=== PATIENT | female | born 1995 | race Caucasian/White ===

== ENCOUNTER 2019-12-18 08:58 | Day surgery (SDC) | payer OTHER ==
[2019-12-17 11:58] VITALS: BMI 43.9
--- NOTE | 2019-12-18 08:10 | HP ---
History & Physical Update - History History: No Change - Physical Physical: No Change - Assessment Assessment: No Change - Plan Plan: No Change
--- NOTE | 2019-12-18 08:12 | OP ---
Operative Note - Note: Operative Date: 12/18/19 Pre-Operative Diagnosis: L ureteral calculus Operation: L ureteroscopy and JJ stent change Findings: L ureteral calculus Post-Operative Diagnosis: Same as Pre-op (passed) Surgeon: Kalyan Seals Anesthesiologist/BOILERMAKER HELPER: Cody Olivo Anesthesia: General Specimens Removed: L JJ stent Estimated Blood Loss (mls): 0 Drains & Tubes with Location: 6 fr 26 cm L JJ stent Operative Report Dictated: Yes
[2019-12-18 09:59] LABS: EPI CELLS 18 /uL (0-25.1); HCG,QUALITATIVE URINE Negative; HYALINE CASTS 5 /uL (0-3.1); PH,URINE 6.5 (5.0-8.0); URINE APPEARANCE TURBID; URINE BACTERIA 1574 /uL (0-1359); URINE BILIRUBIN NEGATIVE (NEGATIVE); URINE COLOR YELLOW; URINE GLUCOSE (UA) NEGATIVE (NEGATIVE); URINE KETONE NEGATIVE (NEGATIVE); URINE LEUK ESTERASE 3+ (NEGATIVE); URINE NITRITE NEGATIVE (NEGATIVE); URINE PROTEIN 3+ (NEGATIVE); URINE RBC 1026 /uL (0-23.9); URINE WBC 5500 /uL (0-25.8)
[2019-12-18] MEDS ORDERED: ONDANSETRON 4 MG/2 ML VIAL IVPUSH PRN (10:41)
[2019-12-18] MEDS ORDERED: LACTATED RINGERS SOLUTION 1,000 ML IV SCH (10:45)
[2019-12-18] MEDS ORDERED: PROPOFOL 20 ML ONE (10:47)
[2019-12-18] MEDS ORDERED: MIDAZOLAM HCL 2 MG/2 ML SINGLE DOSE VIAL ONE (10:47)
[2019-12-18] MEDS ORDERED: DESFLURANE GAS 240 ML BOTTLE IH ONE (10:54)
[2019-12-18] MEDS ORDERED: KETOROLAC TROMETHAMINE 30 MG/1 ML VIAL ONE (11:17)
[2019-12-18] MEDS ORDERED: ceFAZolin SODIUM 1 GM VIAL ONE (11:17)
[2019-12-18] MEDS ORDERED: DEXAMETHASONE SOD PHOSPHATE 4 MG/1 ML VIAL ONE (11:17)
[2019-12-18] MEDS ORDERED: ceFAZolin SODIUM 1 GM VIAL IVPB ONE (11:20)
[2019-12-18] MEDS ORDERED: IOHEXOL 300 MG/ML INFUS..BTL IV ONE (11:41)
[2019-12-18] MEDS ORDERED: ONDANSETRON 4 MG/2 ML VIAL ONE (13:03)
[2019-12-18] MEDS ORDERED: ACETAMINOPHEN INJECTION 100 ML IVPB ONE (13:35)
[2019-12-18] MEDS ORDERED: ACETAMINOPHEN 1000 MG/100 ML VIAL (NON FORMULARY) IVPB ONE (13:37)
[2019-12-18 15:18] VITALS: BP 121/73; PULSE 89; TEMP 98.6
--- NOTE | 2019-12-19 10:45 | OP ---
DATE OF OPERATION: 12/18/2019 PREOPERATIVE DIAGNOSIS: Left ureteral calculus (passed). POSTOPERATIVE DIAGNOSIS: Left ureteral calculus (passed). PROCEDURE: Cystoscopy, left ureteroscopy, left double-J stent change. SURGEON: Kalyan Seals MD TRANSFER STATION ATTENDANT: None. ANESTHESIA: General via laryngeal mask. ANESTHESIOLOGIST: Cody Olivo MD SPECIMENS: Left double-J stent. CULTURES: None. DRAINS: A 6-Tristanian 26-cm left double-J stent. ESTIMATED BLOOD LOSS: None. COMPLICATIONS: None. PROCEDURE IN DETAIL: Patient was brought in the operating room, placed on the operating table in supine position. After administration of general anesthesia via laryngeal mask, intravenous antibiotics were administered. Sequential compression devices were placed. A 22-Tristanian cystoscope was inserted into the bladder under direct vision. Cystoscopy was performed. This demonstrated no tumors or stones. There was some inflammation related to the left double-J stent. The left double-J stent was grasped at its tip, brought to the urethral meatus. Attempts at cannulation were unsuccessful due to encrustation. Cystoscope was reinserted, and a guidewire was advanced alongside the stent to the level of the left renal pelvis under fluoroscopic and direct visual guidance. The left double-J stent was then removed, sent to Pathology as specimen. Now, a dual-lumen catheter was inserted. Retrograde pyelogram was done, demonstrated mild left hydronephrosis, questionable filling defect in the left lower pole of the kidney. A Super Stiff guidewire was inserted through the dual-lumen catheter. Then, dual-lumen catheter was removed, and a ureteral access sheath was inserted over the Super Stiff guidewire, which was then removed. Now, the flexible ureteroscope was inserted through the ureteral access sheath to the level of the left renal pelvis under direct visual and fluoroscopic guidance. The left renal collecting system in its entirety was inspected, and no stone was seen. Now, the ureteroscope was withdrawn along the entire course of the ureter, and again, no stone was seen. The bladder was thoroughly inspected. No stone was in the bladder as well. Ureteroscope was removed, and a 6-Tristanian 26-cm left double-J stent was inserted over the guidewire under fluoroscopic guidance, leaving 1 coil in the renal pelvis and 1 coil in the bladder. Bladder was emptied. Cystoscope removed. She tolerated the procedure well, transferred to the recovery room in stable condition. Jonelle [id number]
--- NOTE | 2019-12-22 16:56 | PATH ---
Surgical Pathology Report Patient Name: TIFFANIE ROE Med. Rec. #: [id number] /Age/Gender: 1995 (Age: 24) / F Account: [id number] Location: [facility] SUR[facility] Taken: 12/18/2019 Received: 12/18/2019 Reported: 12/22/2019 Physicians: Kalyan Seals M.D. Specimen(s) Received FOREIGN BODY Clinical History Calculus of ureter Final Diagnosis LEFT URETERAL STENT, REMOVAL: CONSISTENT WITH SEGMENT OF STENT. GROSS EXAMINATION ONLY. Electronically Signed Suze Harman M.D. Gross Description Received fresh labeled "left ureteral stent removed," is a 38 cm in length blue, coiled portion of tubing, consistent with a ureteral stent. No soft tissue is present. No sections are submitted, gross only. /12/18/2019 saudi/12/18/2019
== END 2019-12-18 15:15 | disposition home or self-care (01) ==
LOC: JASU-SURG 08:58
PROVIDERS: ATTEND Urology
PROC: 0T778DZ Dilation of Left Ureter with Intraluminal Device, Via Natural or Artificial Opening Endoscopic (ICD-10-PCS; principal; 2019-12-18 11:00)
DX: N20.1 Calculus of ureter (principal)
CPT/HCPCS: 76000-TC-FY; 81003; 84703; 88300-TC; 94760; J0131

== ENCOUNTER 2020-07-15 04:53 | Day surgery (SDC) | payer OTHER ==
[2020-07-12 13:10] VITALS: BMI 45.3
[2020-07-15] MEDS ORDERED: PROPOFOL 20 ML ONE (09:31)
[2020-07-15] MEDS ORDERED: EPHEDRINE SULFATE/0.9% NACL/PF 50 MG/10 ML SYRINGE NR ONE (09:31)
[2020-07-15] MEDS ORDERED: MIDAZOLAM HCL 2 MG/2 ML SINGLE DOSE VIAL ONE (09:32)
[2020-07-15] MEDS ORDERED: SUCCINYLCHOLINE CHLORIDE 200 MG/10 ML SYRINGE ONE (09:32)
[2020-07-15] MEDS ORDERED: ceFAZolin SODIUM 1 GM VIAL IVPB ONE (10:06)
[2020-07-15] MEDS ORDERED: IOHEXOL 180 MG/1 ML ML IJ ONE (10:10)
[2020-07-15] MEDS ORDERED: oxyCODONE HCL 5 MG TABLET PO PRN (10:39)
[2020-07-15] MEDS ORDERED: PROMETHAZINE HCL 25 MG/1 ML VIAL IVPB PRN (10:39)
[2020-07-15] MEDS ORDERED: ONDANSETRON 4 MG/2 ML VIAL IVPUSH PRN (10:39)
[2020-07-15] MEDS ORDERED: LACTATED RINGERS SOLUTION 1,000 ML IV SCH (10:45)
[2020-07-15 11:34] VITALS: TEMP 97.5
[2020-07-15 13:14] VITALS: BP 125/62; PULSE 85
[2020-07-24 14:58] LABS: SIZE 1 x 2
[2020-07-24 14:59] LABS: CA OXALATE MONOHYDR. 10%; WEIGHT 5
[2020-07-24 15:00] LABS: CA HYDROGEN PHOS. 80
== END 2020-07-15 13:45 | disposition home or self-care (01) ==
LOC: JASU-SURG 04:53
PROVIDERS: ATTEND Urology
PROC: 0TC78ZZ Extirpation of Matter from Left Ureter, Via Natural or Artificial Opening Endoscopic (ICD-10-PCS; principal; 2020-07-15 09:00)
PROC: 0T778DZ Dilation of Left Ureter with Intraluminal Device, Via Natural or Artificial Opening Endoscopic (ICD-10-PCS; 2020-07-15 09:00)
DX: N20.1 Calculus of ureter (principal)
CPT/HCPCS: 36415; 76000-TC-FY; 82360; 84703; 88300-TC; 94760

== ENCOUNTER 2020-07-17 14:11 | Inpatient (IN) | payer OTHER ==
[2020-07-17] MEDS ORDERED: SODIUM CHLORIDE 1,000 ML IV STA (14:53)
[2020-07-17] MEDS ORDERED: ONDANSETRON 4 MG/2 ML VIAL IVPUSH ONE (14:54)
[2020-07-17] MEDS ORDERED: ONDANSETRON 4 MG/2 ML VIAL ONE (15:02)
[2020-07-17 16:03] LABS: BASO % 0.4 % (0-2.0); HEMATOCRIT 36.4 % (32.4-45.2); HEMOGLOBIN 11.9 GM/dL (10.7-15.3); LYMPH % 13.4 % (8-40); MCH 26.1 pg (25.7-33.7); MCHC 32.8 g/dl (32.0-36.0); MEAN CELL VOLUME 79.8 fl (80-96); MEAN PLT VOLUME 8.9 fl (7.5-11.1); NEUT % 74.2 % (42.8-82.8); PLATELET COUNT 267 K/MM3 (134-434); RBC 4.57 M/mm3 (3.60-5.2); RDW 14.8 % (11.6-15.6); WHITE BLOOD COUNT 13.6 K/mm3 (4.0-10.0)
[2020-07-17 16:14] LABS: POTASSIUM 3.6 mmol/L (3.5-5.1)
[2020-07-17 16:15] LABS: CALCIUM 8.6 mg/dL (8.5-10.1)
[2020-07-17 16:16] LABS: ALBUMIN 3.2 g/dl (3.4-5.0); BLOOD UREA NITROGEN 10.3 mg/dL (7-18)
[2020-07-17 16:19] LABS: CREATININE 0.6 mg/dL (0.55-1.3)
[2020-07-17 16:21] LABS: BILIRUBIN,TOTAL 1.2 mg/dL (0.2-1); TOT PROT 7.1 g/dl (6.4-8.2)
[2020-07-17 16:58] LABS: EPI CELLS >36 /uL (0-25.1); HCG,QUALITATIVE URINE Negative; HYALINE CASTS 0 /uL (0-3.1); URINE APPEARANCE CLEAR; URINE BACTERIA 282 /uL (0-1359); URINE BILIRUBIN NEGATIVE (NEGATIVE); URINE COLOR YELLOW; URINE GLUCOSE (UA) NEGATIVE (NEGATIVE); URINE KETONE NEGATIVE (NEGATIVE); URINE LEUK ESTERASE 2+ (NEGATIVE); URINE NITRITE NEGATIVE (NEGATIVE); URINE PROTEIN NEGATIVE (NEGATIVE); URINE RBC 16 /uL (0-23.9); URINE UROBILINOGEN 0.2 mg/dL (0.2-1.0); URINE WBC 38 /uL (0-25.8)
[2020-07-17] MEDS ORDERED: CEFTRIAXONE 1 GM in DEXTROSE 5%-WATER - 50 ML IVPB ONE (19:21)
[2020-07-17] MEDS ORDERED: CEFTRIAXONE 1 GM/50 ML BAG ONE (19:37)
[2020-07-17] MEDS ORDERED: SODIUM CHLORIDE 1,000 ML IV SCH (21:00)
[2020-07-18] MEDS ORDERED: ACETAMINOPHEN 325 MG TABLET (FP) ONE (00:48)
[2020-07-18] MEDS: ACETAMINOPHEN 325 MG TABLET (FP) PO PRN ×4 (01:00→20:31)
[2020-07-18 04:50] LABS: EPI CELLS 22 /uL (0-25.1); HYALINE CASTS 4 /uL (0-3.1); URINE APPEARANCE TURBID; URINE BACTERIA 900 /uL (0-1359); URINE BILIRUBIN NEGATIVE (NEGATIVE); URINE COLOR YELLOW; URINE GLUCOSE (UA) NEGATIVE (NEGATIVE); URINE KETONE 3+ (NEGATIVE); URINE LEUK ESTERASE 3+ (NEGATIVE); URINE NITRITE NEGATIVE (NEGATIVE); URINE PROTEIN 2+ (NEGATIVE); URINE RBC 579 /uL (0-23.9); URINE WBC 6137 /uL (0-25.8)
[2020-07-18 08:36] LABS: BASO % 0.2 % (0-2.0); HEMATOCRIT 34.4 % (32.4-45.2); HEMOGLOBIN 11.1 GM/dL (10.7-15.3); LYMPH % 19.3 % (8-40); MCH 25.8 pg (25.7-33.7); MCHC 32.2 g/dl (32.0-36.0); MEAN CELL VOLUME 80.3 fl (80-96); MEAN PLT VOLUME 9.3 fl (7.5-11.1); MONO % 15.4 % (3.8-10.2); NEUT % 65.1 % (42.8-82.8); PLATELET COUNT 213 K/MM3 (134-434); RBC 4.29 M/mm3 (3.60-5.2); RDW 14.9 % (11.6-15.6); WHITE BLOOD COUNT 13.5 K/mm3 (4.0-10.0)
[2020-07-18 08:42] LABS: INR 1.43 (0.83-1.09); PROTHROMBIN TIME (PATIENT) 17.1 SEC (9.7-13.0)
[2020-07-18 08:44] LABS: ACTIVATED PTT 29.4 SECONDS (25.2-36.5)
[2020-07-18 09:02] LABS: POTASSIUM 3.7 mmol/L (3.5-5.1)
[2020-07-18] MEDS ORDERED: cefTRIAXone SODIUM 1 GM VIAL ONE (09:19)
[2020-07-18] MEDS ORDERED: DEXTROSE 5%-WATER - 50 ML IVPB ONE ×2 (09:19→17:10)
[2020-07-18 09:20] LABS: ALBUMIN 2.9 g/dl (3.4-5.0); BLOOD UREA NITROGEN 8.9 mg/dL (7-18); CALCIUM 8.5 mg/dL (8.5-10.1); MAGNESIUM 1.9 mg/dL (1.8-2.4)
[2020-07-18 09:23] LABS: CREATININE 0.6 mg/dL (0.55-1.3); PHOSPHOROUS 2.7 mg/dL (2.5-4.9)
[2020-07-18 09:25] LABS: TOT PROT 6.5 g/dl (6.4-8.2)
[2020-07-18] MEDS: FAMOTIDINE 10 MG TABLET PO SCH (09:31)
[2020-07-18] MEDS ORDERED: CEFTRIAXONE 1 GM in DEXTROSE 5%-WATER - 50 ML IVPB SCH (10:00)
[2020-07-18] MEDS ORDERED: SODIUM CHLORIDE 1,000 ML IV STA (11:13)
[2020-07-18] MEDS: ONDANSETRON 4 MG/2 ML VIAL IVPUSH PRN ×2 (11:53→21:38)
[2020-07-18] MEDS ORDERED: VANCOMYCIN HCL 1,500 MG in DEXTROSE 5%-WATER - 500 ML IVPB ONE (13:00)
[2020-07-18] MEDS: ACETAMINOPHEN 1000 MG/100 ML VIAL (NON FORMULARY) IVPB PRN (14:51)
[2020-07-18] MEDS: SODIUM CHLORIDE 1,000 ML IV SCH (14:52)
[2020-07-18] MEDS ORDERED: PIPERACILLIN/TAZOBACTAM 3.375 GM VIAL IVPB ONE (17:10)
[2020-07-18] MEDS ORDERED: MEROPENEM 1 GM in DEXTROSE 5%-WATER 100 ML IVPB SCH (18:00)
[2020-07-18] MEDS: PIPERACILLIN/TAZOB 3.375 GM 3.375 GM in DEXTROSE 5%-WATER - 50 ML IVPB SCH (18:53)
[2020-07-19] MEDS ORDERED: DEXTROSE 5%-WATER - 50 ML IVPB ONE ×4 (01:07→17:59)
[2020-07-19] MEDS ORDERED: PIPERACILLIN/TAZOBACTAM 3.375 GM VIAL IVPB ONE ×4 (01:07→17:59)
[2020-07-19] MEDS: PIPERACILLIN/TAZOB 3.375 GM 3.375 GM in DEXTROSE 5%-WATER - 50 ML IVPB SCH ×3 (01:20→18:12)
[2020-07-19] MEDS: ACETAMINOPHEN 1000 MG/100 ML VIAL (NON FORMULARY) IVPB PRN (05:35)
[2020-07-19 07:51] LABS: BASO % 0.1 % (0-2.0); EOS % 0.1 % (0-4.5); HEMATOCRIT 32.4 % (32.4-45.2); HEMOGLOBIN 10.6 GM/dL (10.7-15.3); MCH 26.2 pg (25.7-33.7); MCHC 32.8 g/dl (32.0-36.0); MEAN CELL VOLUME 79.8 fl (80-96); MEAN PLT VOLUME 9.1 fl (7.5-11.1); MONO % 15.2 % (3.8-10.2); NEUT % 65.6 % (42.8-82.8); PLATELET COUNT 225 K/MM3 (134-434); RBC 4.06 M/mm3 (3.60-5.2); RDW 14.7 % (11.6-15.6); WHITE BLOOD COUNT 13.2 K/mm3 (4.0-10.0)
[2020-07-19 08:20] LABS: BLOOD UREA NITROGEN 6.6 mg/dL (7-18); CALCIUM 8.3 mg/dL (8.5-10.1)
[2020-07-19 08:22] LABS: MAGNESIUM 1.9 mg/dL (1.8-2.4)
[2020-07-19 08:23] LABS: CREATININE 0.5 mg/dL (0.55-1.3); PHOSPHOROUS 2.1 mg/dL (2.5-4.9)
[2020-07-19] MEDS: POTASSIUM CHLORIDE TABS 20 MEQ TABLET.ER (FP) PO SCH (09:00)
[2020-07-19] MEDS: FAMOTIDINE 10 MG TABLET PO SCH (09:02)
[2020-07-19] MEDS: NAPH,MB-DB/K PH,MBDB POWDER PACKET PO SCH ×2 (10:12→21:02)
[2020-07-19] MEDS: valACYclovir HCL 500 MG TABLET (FP) PO SCH ×2 (12:01→21:02)
[2020-07-19] MEDS: SODIUM CHLORIDE 1,000 ML IV SCH (12:06)
[2020-07-19] MEDS: ACETAMINOPHEN 325 MG TABLET (FP) PO PRN (15:44)
[2020-07-20] MEDS ORDERED: PIPERACILLIN/TAZOBACTAM 3.375 GM VIAL IVPB ONE ×3 (00:56→14:13)
[2020-07-20] MEDS ORDERED: DEXTROSE 5%-WATER - 50 ML IVPB ONE ×3 (00:56→14:14)
[2020-07-20] MEDS: ACETAMINOPHEN 325 MG TABLET (FP) PO PRN (00:58)
[2020-07-20] MEDS: PIPERACILLIN/TAZOB 3.375 GM 3.375 GM in DEXTROSE 5%-WATER - 50 ML IVPB SCH ×3 (01:04→17:40)
[2020-07-20 07:50] LABS: BASO % 0.2 % (0-2.0); EOS % 0.6 % (0-4.5); HEMATOCRIT 32.6 % (32.4-45.2); HEMOGLOBIN 10.7 GM/dL (10.7-15.3); LYMPH % 32.4 % (8-40); MCH 26.3 pg (25.7-33.7); MCHC 32.9 g/dl (32.0-36.0); MEAN CELL VOLUME 79.8 fl (80-96); MEAN PLT VOLUME 8.8 fl (7.5-11.1); NEUT % 52.8 % (42.8-82.8); PLATELET COUNT 238 K/MM3 (134-434); RBC 4.09 M/mm3 (3.60-5.2); RDW 14.5 % (11.6-15.6); WHITE BLOOD COUNT 9.5 K/mm3 (4.0-10.0)
[2020-07-20 08:11] LABS: POTASSIUM 3.4 mmol/L (3.5-5.1)
[2020-07-20 08:15] LABS: CALCIUM 8.1 mg/dL (8.5-10.1)
[2020-07-20 08:16] LABS: BLOOD UREA NITROGEN 7.1 mg/dL (7-18); MAGNESIUM 2.1 mg/dL (1.8-2.4)
[2020-07-20 08:19] LABS: CREATININE 0.5 mg/dL (0.55-1.3); PHOSPHOROUS 2.8 mg/dL (2.5-4.9)
[2020-07-20] MEDS: SODIUM CHLORIDE 1,000 ML IV SCH ×3 (08:51→23:04)
[2020-07-20] MEDS: POTASSIUM CHLORIDE TABS 20 MEQ TABLET.ER (FP) PO SCH (08:59)
[2020-07-20] MEDS: valACYclovir HCL 500 MG TABLET (FP) PO SCH ×2 (08:59→21:49)
[2020-07-20] MEDS: ENOXAPARIN NA (PORCINE) 40 MG/0.4 ML DISP.SYRIN SQ SCH (09:00)
[2020-07-20] MEDS: FAMOTIDINE 10 MG TABLET PO SCH (09:02)
[2020-07-20] MEDS ORDERED: POTASSIUM CHLORIDE TABS 20 MEQ TABLET.ER (FP) PO ONE (14:09)
[2020-07-20 15:37] VITALS: BMI 47.9
[2020-07-21] MEDS ORDERED: PIPERACILLIN/TAZOBACTAM 3.375 GM VIAL IVPB ONE ×3 (01:44→17:01)
[2020-07-21] MEDS ORDERED: DEXTROSE 5%-WATER - 50 ML IVPB ONE ×3 (01:44→17:01)
[2020-07-21] MEDS: PIPERACILLIN/TAZOB 3.375 GM 3.375 GM in DEXTROSE 5%-WATER - 50 ML IVPB SCH ×3 (01:57→17:18)
[2020-07-21 08:02] LABS: POTASSIUM 4.1 mmol/L (3.5-5.1)
[2020-07-21 08:03] LABS: HEMATOCRIT 32.6 % (32.4-45.2); HEMOGLOBIN 10.5 GM/dL (10.7-15.3); MCH 26.1 pg (25.7-33.7); MCHC 32.2 g/dl (32.0-36.0); MEAN CELL VOLUME 80.9 fl (80-96); MEAN PLT VOLUME 8.8 fl (7.5-11.1); PLATELET COUNT 272 K/MM3 (134-434); RBC 4.03 M/mm3 (3.60-5.2); RDW 14.6 % (11.6-15.6); WHITE BLOOD COUNT 7.5 K/mm3 (4.0-10.0)
[2020-07-21] MEDS ORDERED: POTASSIUM CHLORIDE TABS 20 MEQ TABLET.ER (FP) PO ONE (08:05)
[2020-07-21 08:15] LABS: ALBUMIN 2.5 g/dl (3.4-5.0); CALCIUM 8.3 mg/dL (8.5-10.1)
[2020-07-21 08:16] LABS: BLOOD UREA NITROGEN 4.9 mg/dL (7-18)
[2020-07-21 08:19] LABS: CREATININE 0.5 mg/dL (0.55-1.3)
[2020-07-21 08:20] LABS: TOT PROT 6.2 g/dl (6.4-8.2)
[2020-07-21] MEDS: valACYclovir HCL 500 MG TABLET (FP) PO SCH ×2 (09:29→22:03)
[2020-07-21] MEDS: ENOXAPARIN NA (PORCINE) 40 MG/0.4 ML DISP.SYRIN SQ SCH ×2 (09:30→09:38)
[2020-07-21] MEDS: FAMOTIDINE 10 MG TABLET PO SCH (09:30)
[2020-07-21] MEDS: POTASSIUM CHLORIDE TABS 20 MEQ TABLET.ER (FP) PO SCH (09:31)
[2020-07-21] MEDS: KCL 10 MEQ IVPB 10 MEQ/100 ML INFUS.BAG IVPB SCH (09:38)
[2020-07-21] MEDS: SODIUM CHLORIDE 1,000 ML IV SCH (11:38)
[2020-07-22] MEDS: SODIUM CHLORIDE 1,000 ML IV SCH (00:20)
[2020-07-22] MEDS ORDERED: DEXTROSE 5%-WATER - 50 ML IVPB ONE ×3 (01:33→11:46)
[2020-07-22] MEDS ORDERED: PIPERACILLIN/TAZOBACTAM 3.375 GM VIAL IVPB ONE ×3 (01:33→11:46)
[2020-07-22] MEDS: PIPERACILLIN/TAZOB 3.375 GM 3.375 GM in DEXTROSE 5%-WATER - 50 ML IVPB SCH ×2 (01:35→09:45)
[2020-07-22 06:01] VITALS: PULSE 77
[2020-07-22 08:06] LABS: POTASSIUM 4.1 mmol/L (3.5-5.1)
[2020-07-22 08:13] LABS: BLOOD UREA NITROGEN 6.6 mg/dL (7-18); CALCIUM 8.3 mg/dL (8.5-10.1)
[2020-07-22 08:16] LABS: CREATININE 0.4 mg/dL (0.55-1.3); HEMATOCRIT 32.8 % (32.4-45.2); HEMOGLOBIN 10.7 GM/dL (10.7-15.3); MCH 26.1 pg (25.7-33.7); MCHC 32.6 g/dl (32.0-36.0); MEAN CELL VOLUME 80.1 fl (80-96); MEAN PLT VOLUME 8.2 fl (7.5-11.1); PLATELET COUNT 305 K/MM3 (134-434); RBC 4.09 M/mm3 (3.60-5.2); RDW 14.5 % (11.6-15.6)
[2020-07-22 09:45] VITALS: BP 100/53; TEMP 98.6
[2020-07-22] MEDS: FAMOTIDINE 10 MG TABLET PO SCH (09:45)
[2020-07-22] MEDS: POTASSIUM CHLORIDE TABS 20 MEQ TABLET.ER (FP) PO SCH (09:45)
[2020-07-22] MEDS: valACYclovir HCL 500 MG TABLET (FP) PO SCH (09:45)
[2020-07-22] MEDS: ENOXAPARIN NA (PORCINE) 40 MG/0.4 ML DISP.SYRIN SQ SCH (09:46)
== END 2020-07-22 15:59 | disposition home or self-care (01) | DRG 872 ==
LOC: JER 14:11 → JERBED 19:26 → J7W 07-18 03:47
PROVIDERS: ADMIT Hospitalist; ATTEND Internal Medicine
DX: A41.9 Sepsis, unspecified organism (principal); N10 Acute pyelonephritis; Z68.41 Body mass index [BMI] 40.0-44.9, adult; E87.6 Hypokalemia; B96.20 Unspecified Escherichia coli [E. coli] as the cause of diseases classified elsewhere; E66.9 Obesity, unspecified; E83.39 Other disorders of phosphorus metabolism
CPT/HCPCS: 36415; 71046-TC-FY; 74177-TC; 80048; 80053; 81003; 83735; 84100; 84703; 85025; 85027; 85610; 85730; 87040; 87086; 87186; 87389; 87491; 87591; 87661; 93005; 93010; 99285-25; C9803; J0131; Q9967; U0003

== ENCOUNTER 2020-07-27 13:33 | Emergency (ER) | payer OTHER ==
[2020-07-27 13:54] VITALS: BP 128/70; PULSE 81; BMI 47.9
[2020-07-27 14:01] VITALS: TEMP 98.1
== END 2020-07-27 15:07 | disposition left against medical advice (07) ==
LOC: JER 13:33
DX: R39.81 Functional urinary incontinence (principal); Z96.0 Presence of urogenital implants
CPT/HCPCS: 99281-25